=== PATIENT | male | born 1960 | race Caucasian/White ===

== ENCOUNTER 2016-06-10 09:16 | Day surgery (SDC) | payer MEDICARE, OTHER ==
[~2016-06-10] VITALS: Ht 167.6 cm; Wt 53.0 kg
[~2016-06-10 09:16] MED LIST: BENZ1TAB61 PO; CHOL10003 PO; CYAN1TAB29 PO; DIPH25CA61 PO; HALO5TAB5 PO; THIA250T4 PO; THIA50TA PO; VITAMIN B
[2016-06-10] MEDS ORDERED: LACTATED RINGERS 1,000 ML IV SCH (09:32)
[2016-06-10] MEDS ORDERED: FLUCONAZOLE 200 MG/100 ML 100 ML IV STA (10:04)
[2016-06-10 10:14] VITALS: BP 149/99
[2016-06-10] MEDS ORDERED: MIDAZOLAM 1 MG/ML, 2ML ONE (10:32)
[2016-06-10] MEDS ORDERED: FENTANYL PF 100 MCG/2ML ONE (10:32)
[2016-06-10] MEDS ORDERED: SUCCINYLCHOLINE 20 MG/ML, 10ML ONE (11:37)
[2016-06-10] MEDS ORDERED: PROPOFOL 10 MG/ML, 20ML ONE (11:37)
[2016-06-10] MEDS ORDERED: ONDANSETRON 2MG/ML, 2ML ONE ×2 (11:37→13:53)
[2016-06-10] MEDS ORDERED: DEXAMETHASONE 4 MG/ML, 1ML ONE (11:37)
[2016-06-10] MEDS ORDERED: OMNIPAQUE 180 MG/ML, 20ML VIAL IT ONE (12:13)
[2016-06-10] MEDS ORDERED: ACETAMINOPHEN 325 MG TABLET PO PRN (12:30)
[2016-06-10] MEDS ORDERED: ALBUTEROL/IPRATROPIUM 2.5MG/0.5MG, 3 ML NPPB PRN (12:30)
[2016-06-10] MEDS ORDERED: OXYcodone 5 MG/5 ML ORAL.SOL UDC PO PRN (12:30)
[2016-06-10] MEDS ORDERED: HYDROmorphone 1 MG/ML, 1ML IV PRN (12:30)
[2016-06-10] MEDS ORDERED: METOPROLOL 1 MG/ML, 5ML IV PRN (12:30)
[2016-06-10] MEDS ORDERED: FENTANYL PF 100 MCG/2ML IV PRN (12:30)
[2016-06-10] MEDS ORDERED: hydrALAzine 20 MG/ML, 1ML IV PRN (12:30)
[2016-06-10] MEDS ORDERED: ONDANSETRON 2MG/ML, 2ML IVPush PRN ×2 (14:30→14:31)
[2016-06-10] MEDS ORDERED: OMNIPAQUE 350 MG/ML, 50 ML BOTTLE ONE (14:45)
[2016-06-10] MEDS ORDERED: PROMETHAZINE 25 MG SUPP PR PRN (17:30)
== END 2016-06-10 18:33 | disposition home or self-care (01) ==
LOC: OUT 09:16
PROVIDERS: ATTEND Urology
DX: Z46.6 Encounter for fitting and adjustment of urinary device (principal); N20.1 Calculus of ureter; N13.5 Crossing vessel and stricture of ureter without hydronephrosis; F31.9 Bipolar disorder, unspecified; Q63.1 Lobulated, fused and horseshoe kidney; Z87.891 Personal history of nicotine dependence
CPT/HCPCS: 52332; 74420; J0330; J1100; J1450; J2250; J2405; J2704; J3010; J7120; Q9965; Q9967; C1758; C1769; C2617

== ENCOUNTER 2016-09-19 07:30 | Inpatient (IN) | payer OTHER, MEDICARE ==
[~2016-09-19] VITALS: Ht 168.9 cm; Wt 56.2 kg
[2016-10-06] MEDS ORDERED: EPINEPHRINE 1 MG/ML, 1ML ONE (12:03)
[2016-10-06] MEDS ORDERED: BUPIVACAINE/PF 0.25% ONE (12:03)
[2016-10-06] MEDS ORDERED: THROMBIN 5,000 UNIT VIAL TP ONE (12:03)
[2016-10-06] MEDS ORDERED: LACTATED RINGERS 1,000 ML IV SCH (12:10)
[2016-10-06] MEDS ORDERED: MIDAZOLAM 1 MG/ML, 2ML ONE (12:17)
[2016-10-06] MEDS ORDERED: FENTANYL PF 250 MCG/5ML ONE (12:18)
[2016-10-06 12:19] VITALS: BP 157/91
[2016-10-06] MEDS ORDERED: PLEASE ENTER HEIGHT AND WEIGHT MC SCH (12:30)
[2016-10-06] MEDS ORDERED: NEOSTIGMINE 1 MG/ML, 10ML ONE (13:15)
[2016-10-06] MEDS ORDERED: ROCURONIUM 10 MG/ML ONE (13:15)
[2016-10-06] MEDS ORDERED: ONDANSETRON 2MG/ML, 2ML ONE (13:15)
[2016-10-06] MEDS ORDERED: DEXAMETHASONE 4 MG/ML, 1ML ONE (13:15)
[2016-10-06] MEDS ORDERED: GLYCOPYRROLATE 0.2MG/1ML ONE (13:15)
[2016-10-06] MEDS ORDERED: PROPOFOL 10 MG/ML, 20ML ONE (13:15)
[2016-10-06] MEDS ORDERED: CEFOXITIN 1,000 MG ONE (13:18)
[2016-10-06] MEDS ORDERED: CEFTRIAXONE 1,000 MG ONE (13:19)
[2016-10-06] MEDS ORDERED: hydrALAzine 20 MG/ML, 1ML IV PRN (16:30)
[2016-10-06] MEDS ORDERED: LABETALOL 5MG/ML, 20ML IV PRN (16:30)
[2016-10-06] MEDS ORDERED: FENTANYL PF 100 MCG/2ML IV PRN (16:30)
[2016-10-06] MEDS ORDERED: PROMETHAZINE 25 MG/ML, 1ML IV PRN (16:30)
[2016-10-06] MEDS ORDERED: ONDANSETRON 2MG/ML, 2ML IVPush PRN (16:30)
[2016-10-06] MEDS ORDERED: MEPERIDINE/PF 25MG/0.5ML IVPush PRN (16:30)
[2016-10-06] MEDS ORDERED: ACETAMINOPHEN 325 MG TABLET PO PRN (16:30)
[2016-10-06] MEDS ORDERED: OXYcodone 5 MG/5 ML ORAL.SOL UDC PO PRN (16:30)
[2016-10-06] MEDS: HYDROmorphone 1 MG/ML, 1ML IV PRN ×2 (16:55→17:21)
[2016-10-06] MEDS ORDERED: OXYcodone 5 MG/5 ML ORAL.SOL UDC ONE (17:17)
[2016-10-06] MEDS ORDERED: HYDROmorphone 1 MG/ML, 1ML ONE (17:17)
[2016-10-06] MEDS ORDERED: morphine SULFATE 10 MG/ML, 1ML IV PRN (19:00)
[2016-10-06 19:25] VITALS: BP 158/96
[2016-10-06] MEDS ORDERED: HYDROmorphone 1 MG/ML, 1ML IV PRN (21:00)
[2016-10-06] MEDS: TAMSULOSIN 0.4 MG CAP.ER.24H PO SCH (21:03)
[2016-10-06] MEDS: CEFAZOLIN PMX 1GM/50ML 50 ML IVPB SCH (21:03)
[2016-10-06 23:28] VITALS: BP 165/66
[2016-10-06] MEDS: HYDROcodone/APAP 10/325 MG TABLET PO PRN (23:44)
[2016-10-07] MEDS: HEPARIN 5,000 UNITS/ML, 1ML SQ SCH ×3 (01:15→17:28)
[2016-10-07 03:28] VITALS: BP 137/76
[2016-10-07] MEDS: HYDROcodone/APAP 10/325 MG TABLET PO PRN ×3 (04:19→15:57)
[2016-10-07 05:24] LABS: BLOOD UREA NITROGEN 16 mg/dL (7-18)
[2016-10-07] MEDS: CEFAZOLIN PMX 1GM/50ML 50 ML IVPB SCH (05:39)
[2016-10-07] MEDS: LACTATED RINGERS 1,000 ML IV SCH ×6 (05:40→21:30)
[2016-10-07 07:41] VITALS: BP 169/91
[2016-10-07] MEDS: ONDANSETRON 2MG/ML, 2ML IV PRN ×2 (07:47→15:56)
[2016-10-07 08:42] VITALS: BP 138/82
[2016-10-07] MEDS ORDERED: BENZTROPINE 1 MG TABLET PO SCH (09:00)
[2016-10-07] MEDS ORDERED: HALOPERIDOL 5 MG TABLET PO SCH (09:00)
[2016-10-07] MEDS: LIOTHYRONINE 5 MCG TABLET PO SCH (10:01)
[2016-10-07 13:45] VITALS: BP 143/86
[2016-10-07 18:30] VITALS: BP 151/85
[2016-10-07] MEDS: BENZTROPINE 1 MG TABLET PO SCH (21:01)
[2016-10-07] MEDS: TAMSULOSIN 0.4 MG CAP.ER.24H PO SCH (21:01)
[2016-10-07] MEDS: HALOPERIDOL 5 MG TABLET PO SCH (21:01)
[2016-10-08 00:10] VITALS: BP 151/86
[2016-10-08] MEDS: LACTATED RINGERS 1,000 ML IV SCH ×4 (00:30→22:00)
[2016-10-08] MEDS: HEPARIN 5,000 UNITS/ML, 1ML SQ SCH ×3 (01:23→17:05)
[2016-10-08] MEDS: HYDROcodone/APAP 10/325 MG TABLET PO PRN ×6 (03:30→21:22)
[2016-10-08 05:04] LABS: ASPARTATE AMINO TRANSFERASE 13 U/L (15-37); BLOOD UREA NITROGEN 11 mg/dL (7-18)
[2016-10-08 06:48] VITALS: BP 153/92
[2016-10-08] MEDS: HALOPERIDOL 5 MG TABLET PO SCH ×2 (09:06→21:22)
[2016-10-08] MEDS: BENZTROPINE 1 MG TABLET PO SCH ×2 (09:06→21:22)
[2016-10-08] MEDS: LIOTHYRONINE 5 MCG TABLET PO SCH (09:07)
[2016-10-08 13:55] VITALS: BP 159/99
[2016-10-08 19:14] VITALS: BP 136/98
[2016-10-08] MEDS: TAMSULOSIN 0.4 MG CAP.ER.24H PO SCH (21:22)
[2016-10-09] MEDS: HEPARIN 5,000 UNITS/ML, 1ML SQ SCH ×3 (01:15→16:12)
[2016-10-09] MEDS: HYDROcodone/APAP 10/325 MG TABLET PO PRN ×3 (01:16→09:43)
[2016-10-09 01:57] VITALS: BP 142/100
[2016-10-09 05:30] LABS: ASPARTATE AMINO TRANSFERASE 15 U/L (15-37); BLOOD UREA NITROGEN 11 mg/dL (7-18)
[2016-10-09 07:55] VITALS: BP 164/94
[2016-10-09] MEDS: HALOPERIDOL 5 MG TABLET PO SCH ×2 (08:17→21:53)
[2016-10-09] MEDS: LIOTHYRONINE 5 MCG TABLET PO SCH (08:17)
[2016-10-09] MEDS: BENZTROPINE 1 MG TABLET PO SCH ×2 (08:17→21:53)
[2016-10-09] MEDS: ONDANSETRON 2MG/ML, 2ML IV PRN ×2 (09:43→16:12)
[2016-10-09] MEDS: LACTATED RINGERS 1,000 ML IV SCH ×2 (09:44→20:00)
[2016-10-09 13:32] VITALS: BP 168/96
[2016-10-09 18:53] VITALS: BP 172/105
[2016-10-09] MEDS: TAMSULOSIN 0.4 MG CAP.ER.24H PO SCH (21:53)
[2016-10-09] MEDS: D5%-0.45% NACL 1,000 ML IV SCH (21:54)
[2016-10-10] VITALS (7 sets, daily range): BP systolic 151–176; BP diastolic 90–110
[2016-10-10] MEDS: HEPARIN 5,000 UNITS/ML, 1ML SQ SCH ×3 (01:44→17:37)
[2016-10-10] MEDS: HYDROcodone/APAP 10/325 MG TABLET PO PRN ×3 (03:56→17:30)
[2016-10-10] MEDS: LACTATED RINGERS 1,000 ML IV SCH ×2 (04:00→16:00)
[2016-10-10] MEDS: HALOPERIDOL 5 MG TABLET PO SCH (08:57)
[2016-10-10] MEDS: BENZTROPINE 1 MG TABLET PO SCH (08:58)
[2016-10-10] MEDS: LIOTHYRONINE 5 MCG TABLET PO SCH (08:58)
[2016-10-10] MEDS: D5%-0.45% NACL 1,000 ML IV SCH ×2 (09:28→16:30)
[2016-10-10] MEDS ORDERED: HYDR-3240 PO (15:04)
[2016-10-10] MEDS ORDERED: DOCU-30 PO (15:05)
== END 2016-10-10 19:45 | disposition home or self-care (01) | DRG 660 ==
LOC: ORIP 10-06 11:10 → 4NOR 10-06 18:03
PROVIDERS: ADMIT Urology; ATTEND Urology
PROC: 8E0W4CZ Robotic Assisted Procedure of Trunk Region, Percutaneous Endoscopic Approach (ICD-10-PCS; 2016-10-06)
PROC: 0TT14ZZ Resection of Left Kidney, Percutaneous Endoscopic Approach (ICD-10-PCS; principal; 2016-10-06 13:00)
DX: Q63.1 Lobulated, fused and horseshoe kidney (principal); K56.7 Ileus, unspecified; I10 Essential (primary) hypertension; Z90.49 Acquired absence of other specified parts of digestive tract; N52.9 Male erectile dysfunction, unspecified; Z87.442 Personal history of urinary calculi; Z80.1 Family history of malignant neoplasm of trachea, bronchus and lung; Z82.3 Family history of stroke; Z87.440 Personal history of urinary (tract) infections
CPT/HCPCS: 36415; 74022; 80048; 80053; 85014; 85018; 86850; 86900; 86923; 88307; C1729; J0171; J0690; J0696; J1100; J1170; J1644; J2250; J2405; J2704; J2710; J3010; J3490; C1760; J0694; J7120